=== PATIENT | female | born 1980 | race Hispanic/Latino ===

== ENCOUNTER 2018-04-07 07:57 | Emergency (ER) | payer BC, OTHER ==
[2018-04-07] MEDS ORDERED: KETOROLAC TROMETHAMINE 60 MG/2 ML VIAL ONE (08:27)
[2018-04-07] MEDS ORDERED: HYDROCODONE/ACETAMINOPHEN 10/325 MG TAB ONE (08:27)
[2018-04-07] MEDS ORDERED: OCTYL 2-CYANOACRYLATE 1 EACH TP ONE (09:00)
[2018-04-07] MEDS ORDERED: LIDOCAINE HCL 1% 20 ML VIAL ONE (09:09)
[2018-04-07] MEDS ORDERED: LIDOCAINE HCL MPF 1% 5ML VIAL ONE (09:24)
[2018-04-07] MEDS ORDERED: ONDANSETRON ODT 4 MG TAB ONE (09:25)
== END 2018-04-07 10:54 | disposition home or self-care (01) ==
LOC: EDH 07:57
DX: S61.210A Laceration without foreign body of right index finger without damage to nail, initial encounter (principal); Z98.51 Tubal ligation status; W26.8XXA Contact with other sharp object(s), not elsewhere classified, initial encounter; Y93.89 Activity, other specified; Y92.89 Other specified places as the place of occurrence of the external cause; Y99.8 Other external cause status
CPT/HCPCS: 12042; 73140; 96372; 99284; J1885; J3490

== ENCOUNTER 2021-09-28 10:08 | Emergency (ER) | payer BC, OTHER ==
[~2021-09-28] VITALS: Ht 165.1 cm; Wt 72.6 kg
[2021-09-28] MEDS ORDERED: 0.9%NACL 1000ML 1,000 ML IV ONE (10:46)
[2021-09-28] MEDS ORDERED: ONDANSETRON 4MG INJ ONE (10:46)
[2021-09-28] MEDS: 0.9%NACL 1000ML 1,000 ML IV SCH ×2 (10:52→11:40)
[2021-09-28] MEDS: ONDANSETRON 4MG INJ IVP SCH ×2 (10:53→11:41)
[2021-09-28 11:15] LABS: APPEARANCE,URINE Clear (CLEAR); BILIRUBIN,URINE Negative (NEGATIVE); COLOR,URINE Yellow (YELLOW); GLUCOSE, URINE (UA) Negative (NEGATIVE); KETONES,URINE Negative (NEGATIVE); LEUKOCYTE ESTERASE ,URINE Negative (NEGATIVE); NITRATE,URINE Negative (NEGATIVE); OCCULT BLOOD,URINE Negative (NEGATIVE); PROTEIN,URINE Negative (NEGATIVE); UROBILINOGEN,URINE 0.2 mg/dL (0.2-1.0)
[2021-09-28 11:17] LABS: BASOPHILS % (AUTO) 0.1 % (0.0-5.0); EOSINOPHILS % (AUTO) 0.5 % (0.0-8.0); HEMATOCRIT 36.4 % (36-48); LYMPHOCYTES % (AUTO) 8.8 % (21.0-51.0); MEAN CORPUSCULAR HEMOGLOBIN 27.9 pg (27.0-33.0); MEAN CORPUSCULAR HGB CONC 31.9 g/dL (32.0-36.0); MEAN CORPUSCULAR VOLUME 87.5 fL (79-99); MONOCYTES % (AUTO) 5.7 % (3.0-13.0); NEUTROPHILS % (AUTO) 83.9 % (40.0-77.0); PLATELET COUNT (AUTO) 319 K/uL (130-400); RED BLOOD CELL COUNT(AUTO) 4.16 MIL/uL (4.00-5.50)
[2021-09-28 11:19] LABS: CREATININE 0.7 mg/dL (0.5-1.5); POTASSIUM 3.2 mmol/L (3.5-5.1)
[2021-09-28 11:22] LABS: HCG,QUAL RESULT NEGATIVE (NEGATIVE)
[2021-09-28 11:24] LABS: ALBUMIN 3.7 g/dL (3.5-5.0); BILIRUBIN,TOTAL 0.3 mg/dL (0.2-1.0); TOTAL PROTEIN, SERUM 7.2 g/dL (6.0-8.3)
[2021-09-28] MEDS ORDERED: DICL50TA9 PO (12:12)
[2021-09-28] MEDS ORDERED: ONDA4TAB10 PO (12:12)
[2021-09-28 12:19] VITALS: BP 118/74
== END 2021-09-28 12:24 | disposition home or self-care (01) ==
LOC: EDH 10:08
DX: K52.9 Noninfective gastroenteritis and colitis, unspecified (principal); E86.9 Volume depletion, unspecified; M79.602 Pain in left arm; Z98.890 Other specified postprocedural states
CPT/HCPCS: 36415; 80053; 81003; 81025; 83690; 85025; 87804 ×2; 96361; 96374; 99284; J2405; J7030